=== PATIENT | male | born 1955 | race Caucasian/White ===

== ENCOUNTER → 2016-09-10 | Outpatient (CLI) | payer BC ==
[2016-09-10 08:08] LABS: CHLORIDE,CL 107 mmol/L (98-110); SODIUM,NA 140 mmol/L (136-146)
== END ==
LOC: MW.CHFP 07:31
PROVIDERS: ATTEND Nurse Practitioner Family
DX: E11.9 Type 2 diabetes mellitus without complications (principal)
CPT/HCPCS: 36415; 80053; 80061; 83036

== ENCOUNTER 2017-07-23 10:46 | Emergency (ER) | payer BC ==
--- NOTE | 2017-07-23 11:20 | EDM.PDOC ---
ED HPI GENERAL MEDICAL PROBLEM - General Chief Complaint: ENT Problem Stated Complaint: TOOTHACHE Time Seen by Provider: 07/23/17 11:10 Source of Information: Reports: Patient History Limitations: Reports: No Limitations - History of Present Illness INITIAL COMMENTS - FREE TEXT/NARRATIVE: HISTORY AND PHYSICAL: History of present illness: [Patient comes to the emergency room complaining of a toothache. Has been present for the last couple of days but intensified significantly this morning. He is scheduled to see his dentist, Dr. Almanzar, on July 25. He denies fever and chills, no nausea or vomiting. No abdominal pain. No earache, face pain, blurred vision double vision or headaches. He is otherwise feeling well. He is taking an anti-inflammatory recently prescribed by his PCP. Allergic to penicillin.] Review of systems: As per history of present illness and below otherwise all systems reviewed and negative. Past medical history: As per history of present illness and as reviewed below otherwise noncontributory. Surgical history: As per history of present illness and as reviewed below otherwise noncontributory. Social history: No reported history of drug or alcohol abuse. Family history: As per history of present illness and as reviewed below otherwise noncontributory. Physical exam: HEENT: Atraumatic, normocephalic. Tooth #6 shows significant decay and is partially broken. Gum tissue is brightly erythematous and swollen. He is tender with palpation over the gums. Other teeth show many fillings. Right medial cheek is tender with palpation. TMs are pearly pimentel bilaterally no erythema or effusion. Oral mucous membranes are pink and moist. Nares are patent and clear. Eyes are clear. Neck is supple, no lymphadenopathy noted. Lungs: Clear to auscultation, breath sounds equal bilaterally. Heart: S1S2, regular rate and rhythm. Abdomen: Overweight. Pelvis: Stable nontender. Genitourinary: Deferred. Rectal: Deferred. Extremities: Atraumatic. Neurovascular unremarkable. Neuro: Awake, alert, oriented. Motor and sensory unremarkable throughout. Exam nonfocal. Impression: [Dental abscess] Plan: [Rx written for hydrocodone 5/325 mg #10 sig one by mouth every 6 hours as needed for pain 0 refills, clindamycin 300 mg #40 sig 1 by mouth 4 times a day 10 days 0 refills, continue anti-inflammatory, push fluids, do not drive will taking this medication. Follow up with dentist as scheduled. Strict return precautions are reviewed. Patients in agreement with today's plan.] Definitive disposition and diagnosis as appropriate pending reevaluation and review of above. Oral/Mouth Pain Score (Numeric/FACES): 7 - Related Data Allergies Allergy/AdvReac Type Severity Reaction Status Date / Time Penicillins Allergy Anaphylactic Verified 07/23/17 11:03 Shock Home Meds: Home Meds Aspirin [Low Dose Aspirin EC] 81 mg PO DAILY 01/17/15 [History] Dapagliflozin Propanediol [Farxiga] 5 mg PO QAM 01/17/15 [History] Esomeprazole Magnesium [Nexium] 20 mg PO DAILY 01/17/15 [History] Hydrochlorothiazide 25 mg PO DAILY 01/17/15 [History] Lisinopril 5 mg PO DAILY 01/17/15 [History] metFORMIN [Glucophage] 1,000 mg PO BID 01/17/15 [History] traZODone 100 mg PO BEDTIME PRN 01/17/15 [History] Betamethasone Dipropionate [Diprosone 0.05% Crm] 1 applic TOP ASDIRECTED PRN 07/08 [History] Glimepiride [Amaryl] 1 tab PO DAILY 04/23/16 [History] Potassium Chloride [Klor-Con 10] 1 tab PO DAILY 04/23/16 [History] Acetaminophen/HYDROcodone [[place] 325-5 MG] 1 tab PO Q4H PRN #30 tablet 04/27/16 [Rx] Past Medical History Other HEENT History: wears glasses Cardiovascular History: Reports: High Cholesterol Respiratory History: Reports: Sleep Apnea Other Respiratory History: uses CPAP Gastrointestinal History: Reports: GERD Genitourinary History: Reports: Renal Calculus Musculoskeletal History: Reports: Fracture Other Musculoskeletal History: hx of fx left index finger and left forearm Neurological History: Reports: None Psychiatric History: Reports: None Endocrine/Metabolic History: Reports: Diabetes, Type II, Obesity/BMI 30+ Hematologic History: Reports: None Immunologic History: Reports: None Oncologic (Cancer) History: Reports: None Dermatologic History: Reports: Psoriasis - Infectious Disease History Infectious Disease History: Reports: Chicken Pox - Past Surgical History Head Surgeries/Procedures: Reports: None HEENT Surgical History: Reports: Naso-Sinus Surgery GI Surgical History: Reports: Cholecystectomy Neurological Surgical History: Reports: Laminectomy Musculoskeletal Surgical History: Reports: None Oncologic Surgical History: Reports: None Dermatological Surgical History: Reports: None Social & Family History - Family History Family Medical History: Noncontributory - Tobacco Use Smoking Status *Q: Never Smoker - Caffeine Use Caffeine Use: Reports: None - Alcohol Use Days Per Week of Alcohol Use: 1 Number of Drinks Per Day: 1 Total Drinks Per Week: 1 - Recreational Drug Use Recreational Drug Use: No Drug Use in Last 12 Months: No ED ROS ENT - Review of Systems Review Of Systems: ROS reveals no pertinent complaints other than HPI. ED EXAM, ENT - Physical Exam Exam: See Below Course - Vital Signs Last Recorded V/S: Last Vital Signs Temp 97.8 F 07/23/17 11:01 Pulse 73 07/23/17 11:01 Resp 18 07/23/17 11:01 BP 116/67 07/23/17 11:01 Pulse Ox 94 L 07/23/17 11:01 Departure - Departure Time of Disposition: 11:30 Disposition: Home, Self-Care 01 Condition: Good Clinical Impression: Dental abscess - Discharge Information Referrals: Josseline Dent SVP [employer] [Primary Care Provider] - Additional Instructions: The following information is given to patients seen in the emergency department who are being discharged to home. This information is to outline your options for follow-up care. We provide all patients seen in our emergency department with a follow-up referral. The need for follow-up, as well as the timing and circumstances, are variable depending upon the specifics of your emergency department visit. If you don't have a primary care physician on staff, we will provide you with a referral. We always advise you to contact your personal physician following an emergency department visit to inform them of the circumstance of the visit and for follow-up with them and/or the need for any referrals to a consulting specialist. The emergency department will also refer you to a specialist when appropriate. This referral assures that you have the opportunity for follow-up care with a specialist. All of these measure are taken in an effort to provide you with optimal care, which includes your follow-up. Under all circumstances we always encourage you to contact your private physician who remains a resource for coordinating your care. When calling for follow-up care, please make the office aware that this follow-up is from your recent emergency room visit. If for any reason you are refused follow-up, please contact the [facility] emergency department at and asked to speak to the emergency department charge nurse. [facility] [address] [place] [id number] [address] your dentist as scheduled on Tuesday. Take antibiotic and medications as prescribed. Return to ER as needed as discussed.
[2017-07-23] MEDS ORDERED: Benzocaine 20% Topical Spray UD MUCMEM ONE (11:30)
[2017-07-23] MEDS ORDERED: Lidocaine 2% Viscous Solution 15 ML Cup PO ONE (11:30)
[2017-07-23 12:25] VITALS: BP 116/67
== END 2017-07-23 11:46 | disposition home or self-care (01) ==
LOC: MW.ED 10:46
DX: K04.7 Periapical abscess without sinus (principal); K03.81 Cracked tooth; K02.9 Dental caries, unspecified; E78.00 Pure hypercholesterolemia, unspecified; G47.30 Sleep apnea, unspecified; K21.9 Gastro-esophageal reflux disease without esophagitis; E11.9 Type 2 diabetes mellitus without complications; Z79.84 Long term (current) use of oral hypoglycemic drugs; Z79.82 Long term (current) use of aspirin; Z79.899 Other long term (current) drug therapy; Z88.0 Allergy status to penicillin
CPT/HCPCS: 99282; A9270; 99283

== ENCOUNTER 2018-07-04 17:48 | Emergency (ER) | payer BC ==
[2018-07-04] MEDS ORDERED: fentaNYL 100 MCG/2 ML SDV ONE (18:15)
[2018-07-04] MEDS ORDERED: fentaNYL 100 MCG/2 ML SDV IVPUSH ONE ×2 (18:24→18:48)
[2018-07-04] MEDS ORDERED: Ondansetron 4 MG/2 ML SDV IVPUSH ONE (18:31)
[2018-07-04] MEDS ORDERED: Ketorolac 30 MG/ML SDV IVPUSH ONE (18:31)
[2018-07-04] MEDS ORDERED: Sodium Chloride 0.9% 1,000 ML IV ONE (18:35)
--- NOTE | 2018-07-04 18:39 | EDM.PDOC ---
ED HPI GENERAL MEDICAL PROBLEM - General Chief Complaint: Genitourinary Problem Stated Complaint: URINARY ISSUES Time Seen by Provider: 07/04/18 18:01 Source of Information: Reports: Patient History Limitations: Reports: No Limitations - History of Present Illness INITIAL COMMENTS - FREE TEXT/NARRATIVE: Presents reporting right flank pain. The patient states that he had a kidney stone a few months ago and this pain is the same. Accompanied by mild nausea. Started about 3 hours ago. Some frequency of urination but no burning or urgency. No fever Right Flank Pain Score (Numeric/FACES): 10 - Related Data Allergies Allergy/AdvReac Type Severity Reaction Status Date / Time Penicillins Allergy Anaphylactic Verified 07/04/18 18:01 Shock Home Meds: Home Meds Esomeprazole Magnesium [Nexium] 20 mg PO DAILY 01/17/15 [History] traZODone 100 mg PO BEDTIME PRN 01/17/15 [History] Hydrocodone/Acetaminophen [Hydrocodon-Acetaminoph 7.5-325] 1 tab PO Q6HR #10 tablet 07/04/18 [Rx] Ondansetron [Zofran ODT] 1 tab PO Q6H PRN #4 tab.dis 07/04/18 [Rx] Tamsulosin [Tamsulosin 24 Hr] 0.4 mg PO DAILY #10 cap.er 07/04/18 [Rx] Past Medical History Other HEENT History: wears glasses Cardiovascular History: Reports: High Cholesterol Respiratory History: Reports: Sleep Apnea Other Respiratory History: uses CPAP Gastrointestinal History: Reports: GERD Genitourinary History: Reports: Renal Calculus Musculoskeletal History: Reports: Fracture Other Musculoskeletal History: hx of fx left index finger and left forearm Neurological History: Reports: None Psychiatric History: Reports: None Endocrine/Metabolic History: Reports: Diabetes, Type II, Obesity/BMI 30+ Hematologic History: Reports: None Immunologic History: Reports: None Oncologic (Cancer) History: Reports: None Dermatologic History: Reports: Psoriasis - Infectious Disease History Infectious Disease History: Reports: Chicken Pox - Past Surgical History Head Surgeries/Procedures: Reports: None HEENT Surgical History: Reports: Naso-Sinus Surgery GI Surgical History: Reports: Cholecystectomy Neurological Surgical History: Reports: Laminectomy Musculoskeletal Surgical History: Reports: None Oncologic Surgical History: Reports: None Dermatological Surgical History: Reports: None Social & Family History - Family History Family Medical History: Noncontributory - Tobacco Use Smoking Status *Q: Never Smoker Second Hand Smoke Exposure: No - Caffeine Use Caffeine Use: Reports: None - Recreational Drug Use Recreational Drug Use: No ED ROS GENERAL - Review of Systems Review Of Systems: ROS reveals no pertinent complaints other than HPI. ED EXAM, RENAL/ - Physical Exam Exam: See Below Exam Limited By: No Limitations General Appearance: Alert, No Apparent Distress Ears: Normal External Exam Nose: Normal Inspection Throat/Mouth: Normal Inspection Head: Atraumatic, Normocephalic Neck: Normal Inspection Respiratory/Chest: No Respiratory Distress, Lungs Clear, Normal Breath Sounds Cardiovascular: Regular Rate, Rhythm GI/Abdominal: Soft, Non-Tender, No Distention Back Exam: Normal Inspection Extremities: Normal Inspection, No Pedal Edema Neurological: Alert, Oriented, Normal Cognition Psychiatric: Normal Affect, Anxious (Due to pain) Skin Exam: Warm, Dry, Intact, Normal Color, No Rash Lymphatic: No Adenopathy Course - Vital Signs Last Recorded V/S: Last Vital Signs Temp 36.2 C 07/04/18 18:08 Pulse 53 L 07/04/18 18:08 Resp 20 07/04/18 18:08 BP 121/70 07/04/18 18:08 Pulse Ox 96 07/04/18 18:08 - Orders/Labs/Meds Orders: Active Orders 24 hr Category Date Time Status Abdomen Pelvis wo Cont [CT] Stat Exams 07/04/18 18:33 Ordered COMPREHENSIVE METABOLIC PN,CMP [CHEM] Stat Lab 07/04/18 18:10 Received UA W/DANIELA RFLX IF INDICATED [URIN] Stat Lab 07/04/18 18:10 Received Sodium Chloride 0.9% [Normal Saline] 1,000 ml Med 07/04/18 18:35 Active IV STAT Medication Orders Sodium Chloride (Normal Saline) 1,000 mls @ 999 mls/hr IV STAT ONE Stop: 07/04/18 19:35 Labs: Laboratory Tests 07/04/18 Range/Units 18:10 WBC 10.04 (4.0-11.0) K/uL RBC 5.50 (4.50-5.90) M/uL Hgb 16.0 (13.0-17.0) g/dL Hct 46.9 (38.0-50.0) % MCV 85.3 (80.0-98.0) fL MCH 29.1 (27.0-32.0) pg MCHC 34.1 (31.0-37.0) g/dL RDW Std Deviation 46.6 (28.0-62.0) fl RDW Coeff of Cynthia 15 (11.0-15.0) % Plt Count 298 (150-400) K/uL MPV 10.00 (7.40-12.00) fL Neut % (Auto) 65.3 (48.0-80.0) % Lymph % (Auto) 27.1 (16.0-40.0) % [place] % (Auto) 5.8 (0.0-15.0) % Eos % (Auto) 1.5 (0.0-7.0) % Baso % (Auto) 0.3 (0.0-1.5) % Neut # (Auto) 6.6 H (1.4-5.7) K/uL Lymph # (Auto) 2.7 H (0.6-2.4) K/uL [place] # (Auto) 0.6 (0.0-0.8) K/uL Eos # (Auto) 0.2 (0.0-0.7) K/uL Baso # (Auto) 0.0 (0.0-0.1) K/uL Nucleated RBC % 0.0 /100WBC Nucleated RBCs # 0 K/uL Meds: Medications Generic Name Dose Route Start Last Admin Trade Name Freq PRN Reason Stop Dose Admin Sodium Chloride 1,000 mls @ 999 mls/hr 07/04/18 18:35 Normal Saline IV 07/04/18 19:35 STAT ONE Discontinued Medications Generic Name Dose Route Start Last Admin Trade Name Freq PRN Reason Stop Dose Admin Fentanyl Confirm 07/04/18 18:15 07/04/18 18:25 Sublimaze Administered 07/04/18 18:16 Not Given Dose 100 mcg .ROUTE .STK-MED ONE Fentanyl 50 mcg 07/04/18 18:24 Sublimaze IVPUSH 07/04/18 18:25 Q5M ONE Ketorolac Tromethamine 30 mg 07/04/18 18:31 Toradol IVPUSH 07/04/18 18:32 ONETIME ONE Ondansetron HCl 4 mg 07/04/18 18:31 Zofran IVPUSH 07/04/18 18:32 ONETIME ONE Departure - Departure Time of Disposition: 20:02 Disposition: Home, Self-Care 01 Condition: Good Clinical Impression: Ureteral stone - Discharge Information Referrals: Anel Dumont MD [Primary Care Provider] - Mustapha Velasquez MD [Physician] - Forms: ED Department Discharge Additional Instructions: 1. Tamsulosin once daily 2. Zofran every 6 hours as needed for nausea 3. Hydrocodone every 6 hours as needed for pain. No driving or operating machinery 4. Follow-up in urology - My Orders Last 24 Hours: My Active Orders 07/04/18 18:10 COMPREHENSIVE METABOLIC PN,CMP [CHEM] Stat UA W/DANIELA RFLX IF INDICATED [URIN] Stat 07/04/18 18:33 Abdomen Pelvis wo Cont [CT] Stat 07/04/18 18:35 Sodium Chloride 0.9% [Normal Saline] 1,000 ml IV STAT - Assessment/Plan Last 24 Hours: My Active Orders 07/04/18 18:10 COMPREHENSIVE METABOLIC PN,CMP [CHEM] Stat UA W/DANIELA RFLX IF INDICATED [URIN] Stat 07/04/18 18:33 Abdomen Pelvis wo Cont [CT] Stat 07/04/18 18:35 Sodium Chloride 0.9% [Normal Saline] 1,000 ml IV STAT
[2018-07-04 18:57] LABS: CHLORIDE,CL 105 mmol/L (98-107); SODIUM,NA 139 mmol/L (136-148)
--- NOTE | 2018-07-04 19:51 | CT ---
INDICATION: Right-sided abdominal pain TECHNIQUE: CT abdomen and pelvis without contrast. COMPARISON: January 17 FINDINGS: Lower chest: Unremarkable. Liver: Unremarkable. Spleen: Unremarkable. Pancreas: Unremarkable. Gallbladder and bile ducts: S/p cholecystectomy. Adrenal glands: Unremarkable. Kidneys: 4 mm stone in the distal right ureter with mild right hydronephrosis and hydroureter. There are a few punctate, nonobstructive stones in the left kidney. GI tract: Status post gastric bypass procedure. Colonic diverticulosis. Normal appendix. Anastomotic suture in the distal transverse colon. Vascular structures: Unremarkable. Lymph nodes: Unremarkable. Miscellaneous: Unremarkable. No free air or significant free fluid. Pelvic Organs: Enlarged prostate gland. Bones: Unremarkable for age. IMPRESSION: 4 mm stone in the distal right ureter with mild right hydronephrosis and hydroureter. There are a few nonobstructive punctate left renal stones. Colonic diverticulosis. Enlarged prostate gland. Status post cholecystectomy and gastric bypass procedure. Please note that all CT scans at this facility use dose modulation, iterative reconstruction, and/or weight-based dosing when appropriate to reduce radiation dose to as low as reasonably achievable. Dictated by Selma Devlin MD @ Jul 04 2018 7:48PM Signed by Dr. Selma Devlin @ Jul 04 2018 7:48PM
[2018-07-04] MEDS ORDERED: Tamsulosin 0.4 MG Cap.ER PO ONE (20:04)
[2018-07-04] MEDS ORDERED: Acetaminophen/HYDROcodone 325-10 MG Tab PO ONE (20:06)
[2018-07-04 20:29] VITALS: BP 116/66
== END 2018-07-04 20:30 | disposition home or self-care (01) ==
LOC: MW.ED 17:48
DX: N13.2 Hydronephrosis with renal and ureteral calculous obstruction (principal); E11.9 Type 2 diabetes mellitus without complications; Z90.49 Acquired absence of other specified parts of digestive tract; Z98.84 Bariatric surgery status; Z88.0 Allergy status to penicillin
CPT/HCPCS: 36415; 74176; 80053; 81001; 85025; 96361; 96374; 96375; 99284; A9270; J1885; J2405; J3010; J7040

== ENCOUNTER 2023-02-25 16:12 | Emergency (ER) | payer BC ==
[2023-02-25] MEDS ORDERED: Sodium Chloride 0.9% 2.5 ML Syringe FLUSH PRN (16:42)
[2023-02-25] MEDS ORDERED: Sodium Chloride 0.9% 10 ML Syringe FLUSH PRN (16:42)
[2023-02-25] MEDS ORDERED: Morphine 2 MG/ML SYRINGE IVPUSH ONE (16:43)
[2023-02-25] MEDS ORDERED: Naloxone 0.4 MG/ML SDV IVPUSH PRN (16:43)
[2023-02-25] MEDS ORDERED: Ondansetron 4 MG/2 ML SDV IVPUSH ONE (16:43)
[2023-02-25 17:10] LABS: BILIRUBIN,URINE NEGATIVE (NEGATIVE); COLOR,URINE YELLOW; GLUCOSE,URINE 100 mg/dL (NEGATIVE); KETONES,URINE NEGATIVE (NEGATIVE); LEUKOCYTE ESTERASE,URINE LARGE (NEGATIVE); NITRITE,URINE POSITIVE (NEGATIVE); OCCULT BLOOD,URINE MODERATE (NEGATIVE); PROTEIN,URINE 100 mg/dL (NEGATIVE); UROBILINOGEN,URINE 0.2 EU/dL (<2.0)
[2023-02-25 17:18] LABS: APPEARANCE,URINE CLOUDY
[2023-02-25 17:19] LABS: BACTERIA,URINE 2+ (NEGATIVE); EPITHELIAL CELLS,URINE RARE (NONE-FEW); RBC,URINE 0-5 (0-2/HPF); WBC,URINE TO NUMEROUS TO COUNT (0-5/HPF)
[2023-02-25 17:37] LABS: BASOPHILS ABSOLUTE AUTO 0.06 K/uL (0.00-0.20); BASOPHILS PERCENT AUTO 0.3 % (0.0-1.0); EOSINOPHILS ABSOLUTE AUTO 0.07 K/uL (0.00-0.45); EOSINOPHILS PERCENT AUTO 0.4 % (0.0-6.0); HEMATOCRIT 47.2 % (42.0-52.0); HEMOGLOBIN 16.7 g/dL (14.0-18.0); LYMPHOCYTES ABSOLUTE AUTO 1.97 K/uL (1.00-4.80); LYMPHOCYTES PERCENT AUTO 10.8 % (24.0-44.0); MEAN CORPUSCULAR HEMOGLOBIN 31.7 pg (28.0-32.0); MEAN CORPUSCULAR HGB CONC 35.4 g/dL (32.0-36.0); MEAN CORPUSCULAR VOLUME 89.6 fL (83.0-99.0); MEAN PLATELET VOLUME 9.8 fL (9.4-12.4); MONOCYTES ABSOLUTE AUTO 1.09 K/uL (0.00-0.80); NEUTROPHILS PERCENT AUTO 82.1 % (41.0-71.0); PLATELET COUNT,PLT 331 K/uL (150-400); RED BLOOD CELL COUNT 5.27 M/uL (4.52-5.90); WHITE BLOOD CELL COUNT,WBC 18.22 K/uL (3.9-11.3)
[2023-02-25] MEDS ORDERED: Cefepime 2 GM Vial IVPUSH ONE (18:23)
[2023-02-25] MEDS ORDERED: Sodium Chloride 0.9% 1,000 ML IV ONE ×2 (18:28→18:29)
[2023-02-25] MEDS ORDERED: Sodium Chloride 0.9% 250 ML IV SCH (18:30)
[2023-02-25] MEDS ORDERED: Morphine 4 MG/ML Syringe IVPUSH ONE (18:38)
[2023-02-25] MEDS ORDERED: Iopamidol 755 MG/ML 500 ML Multipack Bottle IVPUSH ONE (19:22)
[2023-02-25 19:34] LABS: A/G RATIO 0.9 (0.9-1.6); ALBUMIN 3.4 g/dL (3.4-5.0); BILIRUBIN TOTAL 0.7 mg/dL (0.2-1.0); CALCIUM 8.9 mg/dL (8.5-10.1); CARBON DIOXIDE,CO2 27.3 mmol/L (21.0-32.0); CREATININE 2.1 mg/dL (0.8-1.3); EST CRCL DRUG DOSING (CG) 36.85 mL/min; POTASSIUM,K 4.4 mmol/L (3.5-5.1); PROTEIN TOTAL,TP 7.4 g/dL (6.4-8.2)
[2023-02-25] MEDS ORDERED: HYDROmorphone 1 MG/ML Syringe IVPUSH ONE (19:39)
[2023-02-25 20:42] VITALS: BP 132/85; PULSE 80
[2023-02-25 21:07] LABS: LACTIC ACID 2.4 mmol/L (0.4-2.0)
== END 2023-02-25 22:02 ==
LOC: MW.ED 16:12
DX: N20.0 Calculus of kidney (principal); N15.9 Renal tubulo-interstitial disease, unspecified; I10 Essential (primary) hypertension; K21.9 Gastro-esophageal reflux disease without esophagitis; E11.9 Type 2 diabetes mellitus without complications; E66.9 Obesity, unspecified; Z68.33 Body mass index [BMI] 33.0-33.9, adult; Z79.899 Other long term (current) drug therapy; Z88.0 Allergy status to penicillin
CPT/HCPCS: 36415; 74177; 80053; 81001; 83605; 83690; 85025; 87040; 87077; 87086; 87186; 96374; 96375; 96376; 99285; J0692; J1170; J2270; J2405; J3490; J7030; Q9967

== ENCOUNTER 2023-12-16 12:32 | Emergency (ER) | payer BC ==
[2023-12-16 12:58] VITALS: BP 142/65
[2023-12-16] MEDS ORDERED: Sodium Chloride 0.9% 2.5 ML Syringe FLUSH PRN (13:17)
[2023-12-16] MEDS ORDERED: Sodium Chloride 0.9% 10 ML Syringe FLUSH PRN (13:17)
[2023-12-16 14:24] LABS: LACTIC ACID 1.4 mmol/L (0.4-2.0)
[2023-12-16 14:52] VITALS: PULSE 67
== END 2023-12-16 14:51 | disposition home or self-care (01) ==
LOC: MW.ED 12:32
DX: D72.829 Elevated white blood cell count, unspecified (principal); R51.9 Headache, unspecified; R05.8 Other specified cough; I10 Essential (primary) hypertension; K21.9 Gastro-esophageal reflux disease without esophagitis; E11.9 Type 2 diabetes mellitus without complications; Z90.49 Acquired absence of other specified parts of digestive tract; Z75.8 Other problems related to medical facilities and other health care; Z88.0 Allergy status to penicillin; Z79.899 Other long term (current) drug therapy; Z79.4 Long term (current) use of insulin
CPT/HCPCS: 36415; 83605; 84484; 87040; 93005; 99284

== ENCOUNTER 2024-03-02 19:00 | Emergency (ER) | payer BC ==
[2024-03-02 22:18] VITALS: BP 138/82; PULSE 58
== END 2024-03-02 22:18 | disposition home or self-care (01) ==
LOC: MW.ED 19:00
DX: S62.356A Nondisplaced fracture of shaft of fifth metacarpal bone, right hand, initial encounter for closed fracture (principal); I10 Essential (primary) hypertension; E11.9 Type 2 diabetes mellitus without complications; Z68.32 Body mass index [BMI] 32.0-32.9, adult; E66.9 Obesity, unspecified; Z88.0 Allergy status to penicillin; Z79.899 Other long term (current) drug therapy
CPT/HCPCS: 29125; 73130-26-RT; 73130-RT; 99283; 99283-25